=== PATIENT | male | born 1935 | race Caucasian/White ===

== ENCOUNTER → 2016-07-21 | Outpatient (CLI) | payer OTHER ==
[2016-07-21 07:28] LABS: BASOPHIL % 0.8 %; EOSINOPHIL # 0.1 K/uL (0.0-0.5); EOSINOPHIL % 1.3 %; HEMATOCRIT 42.1 % (37.0-53.0); IMMATURE GRANULOCYTE % 0.6 %; LYMPHOCYTE # 1.3 K/uL (0.8-4.0); LYMPHOCYTE % 24.9 %; MCH 29.8 pg (27.0-34.0); MCHC 33.3 gm/dL (32.0-36.5); MCV 89.6 fl (83.0-98.0); MONOCYTE # 0.7 K/uL (0.0-1.0); MONOCYTE % 13.2 %; MPV 9.5 fl (9.4-12.4); NEUTROPHIL # (ANC) 3.2 K/uL (1.4-9.0); NEUTROPHIL % 59.2 %; NRBC % 0 /100WBC (0-0.00); PLATELET COUNT 212 K/uL (150-450); RDW-CV 13.2 % (11.9-14.6); WBC 5.3 K/uL (4.0-11.0)
[2016-07-21 07:55] LABS: ALBUMIN 3.5 gm/dL (3.5-5.0); ALK PHOS 95 IU/L (33-138); ALT 25 IU/L (12-78); ANION GAP 11.3 (10.0-19.0); AST 15 IU/L (10-40); BLOOD UREA NITROGEN 17 mg/dL (6-24); CALCIUM 8.3 mg/dL (8.5-10.5); CHLORIDE 106 mMol/L (96-110); CO2 28 mMol/L (22-32); CREATININE 1.1 mg/dL (0.6-1.3); ESTIMATED GFR (MDRD EQUATION) > 60; POTASSIUM 4.3 mMol/L (3.7-5.1); SODIUM 141 mMol/L (135-145); TOTAL BILIRUBIN 0.5 mg/dL (0.0-1.5)
== END | disposition disaster alternative care site (69) ==
LOC: GLAB 07-18 08:03
PROVIDERS: Family Medicine
DX: Z13.1 Encounter for screening for diabetes mellitus (principal); I80.209 Phlebitis and thrombophlebitis of unspecified deep vessels of unspecified lower extremity; C61 Malignant neoplasm of prostate; E78.00 Pure hypercholesterolemia, unspecified; Z79.01 Long term (current) use of anticoagulants